=== PATIENT | male | born 2000 | race Hispanic/Latino ===

== ENCOUNTER 2019-04-11 13:20 | Inpatient (IN) | payer BC, OTHER ==
[2019-04-11 13:41] LABS: #Basophils 0.1 thou/uL (0.0-0.2); #Lymphocytes 2.1 thou/uL (1.20-3.40); #Monocytes 1.5 thou/uL (0.11-0.59); #Neutrophils 9.6 thou/uL (1.40-6.50); %Basophils 0.5 % (0.0-1.0); %Eosinophils 0.2 % (0.0-10.0); %Lymphocytes 15.6 % (21.0-51.0); %Neutrophils 72.7 % (42.0-75.0); Hemoglobin 17.9 g/dL (14.0-18.0); Mean Corpuscular HGB CONC 34.8 g/dL (32.0-36.0); Mean Corpuscular Hemoglobin 29.7 pg (27.0-31.0); Mean Corpuscular Volume 85.3 fL (78.0-98.0); Mean Platelet Volume 7.9 fL (7.4-10.4); Platelet Count 389 thou/uL (130-400); RBC Distribution Width 11.8 % (11.5-14.5); Red Blood Cell (RBC) Count 6.04 mill/uL (4.70-6.10); White Blood Cell (WBC) Count 13.2 thou/uL (4.8-10.8)
[2019-04-11 14:05] LABS: ALT (SGPT) 70 U/L (8-55); AST (SGOT) 43 U/L (5-34); Albumin 4.9 g/dL (3.5-5.0); Alkaline Phosphatase 77 U/L (40-110); Anion Gap 16 mmol/L (10-20); BUN (Urea Nitrogen) 21 mg/dL (8.9-20.6); Calc. Creatinine Clearance 0 mL/min (70-130); Calcium 9.6 mg/dL (7.8-10.44); Carbon Dioxide 34 mmol/L (22-29); Chloride 83 mmol/L (98-107); Estimated GFR-MDRD 80; Globulin 3.3 g/dL (2.4-3.5); Glucose 144 mg/dL (70-105); Protein, Total 8.2 g/dL (6.0-8.3); Sodium 130 mmol/L (136-145)
[2019-04-11 14:07] LABS: Potassium 2.6 mmol/L (3.5-5.1)
[2019-04-11] MEDS ORDERED: Ondansetron PF 4 MG/2 ML Vial ONE (14:10)
[2019-04-11] MEDS ORDERED: Potassium Chloride 20 MEQ TAB ONE ×2 (14:36→14:42)
[2019-04-11 15:55] LABS: Bilirubin Negative (Negative); Blood, Urine Negative (Negative); Clarity Clear (Clear); Glucose, Urine (Dipstick) Normal (Negative); Leukocyte Negative Leu/uL (Negative); Nitrite Negative (Negative); Protein, Urine (Dipstick) 10 mg/dL (Neg-Trace); Urobilinogen Normal mg/dL (Less than 2)
[2019-04-11 17:10] VITALS: BMI 17.5
[2019-04-11] MEDS ORDERED: Acetaminophen 650 MG Suppository PR PRN (17:21)
[2019-04-11] MEDS ORDERED: Ondansetron ODT 4 MG TAB PO PRN (17:21)
[2019-04-11] MEDS ORDERED: Guaifenesin DM 100-10/5 ML UDCUP PO PRN (17:21)
[2019-04-11] MEDS ORDERED: Acetaminophen 325 MG TAB PO PRN (17:21)
[2019-04-11] MEDS ORDERED: Senokot S 8.6-50 MG TAB PO PRN (17:21)
[2019-04-11 18:47] LABS: Anion Gap 14 mmol/L (10-20); BUN (Urea Nitrogen) 17 mg/dL (8.9-20.6); Calc. Creatinine Clearance 79 mL/min (70-130); Carbon Dioxide 32 mmol/L (22-29); Chloride 90 mmol/L (98-107); Estimated GFR-MDRD Greater than 90; Glucose 119 mg/dL (70-105); Potassium 3.1 mmol/L (3.5-5.1); Sodium 133 mmol/L (136-145)
[2019-04-11] MEDS: Famotidine/PF 20 mg/2ml Vial SLOW IVP SCH (19:15)
[2019-04-11] MEDS: Ondansetron PF 4 MG/2 ML Vial IVP PRN (19:15)
[2019-04-11] MEDS ORDERED: FLU VACC QS2019-20(6MOS UP)/PF 60 MCG/0.5 ML SYRINGE IM ONE (21:00)
[2019-04-12 05:17] LABS: #Basophils 0.1 thou/uL (0.0-0.2); #Eosinphils 0.2 thou/uL (0.0-0.7); #Lymphocytes 3.6 thou/uL (1.20-3.40); #Monocytes 1.6 thou/uL (0.11-0.59); #Neutrophils 6.9 thou/uL (1.40-6.50); %Basophils 0.8 % (0.0-1.0); %Lymphocytes 29.1 % (21.0-51.0); %Monocytes 12.8 % (0.0-10.0); %Neutrophils 55.3 % (42.0-75.0); Hemoglobin 15.9 g/dL (14.0-18.0); Mean Corpuscular Hemoglobin 30.4 pg (27.0-31.0); Mean Corpuscular Volume 86.9 fL (78.0-98.0); Mean Platelet Volume 7.7 fL (7.4-10.4); Platelet Count 313 thou/uL (130-400); RBC Distribution Width 11.6 % (11.5-14.5); Red Blood Cell (RBC) Count 5.25 mill/uL (4.70-6.10); White Blood Cell (WBC) Count 12.5 thou/uL (4.8-10.8)
[2019-04-12 05:44] LABS: ALT (SGPT) 70 U/L (8-55); AST (SGOT) 59 U/L (5-34); Albumin 4.2 g/dL (3.5-5.0); Alkaline Phosphatase 64 U/L (40-110); Anion Gap 12 mmol/L (10-20); BUN (Urea Nitrogen) 14 mg/dL (8.9-20.6); Bilirubin, Total 1.7 mg/dL (0.2-1.2); Calc. Creatinine Clearance 83 mL/min (70-130); Calcium 8.7 mg/dL (7.8-10.44); Carbon Dioxide 31 mmol/L (22-29); Chloride 93 mmol/L (98-107); Estimated GFR-MDRD Greater than 90; Globulin 2.6 g/dL (2.4-3.5); Glucose 105 mg/dL (70-105); Protein, Total 6.8 g/dL (6.0-8.3); Sodium 133 mmol/L (136-145)
[2019-04-12 05:48] LABS: Potassium 2.8 mmol/L (3.5-5.1)
--- NOTE | 2019-04-12 05:58 | HP ---
PRIMARY CARE PHYSICIAN: Dr. Dejan Garcia at [facility]. CHIEF COMPLAINT: Intractable nausea and vomiting. HISTORY OF PRESENT ILLNESS: This is a 19-year-old male with a history of for about the past two years, intermittent episodes of nausea and vomiting, usually lasts 3 to 4 days, happens about every 6 months. He has occasionally had to go into the urgent care at [facility] for this, where he has gotten potassium. He also had ultrasound of his gallbladder maybe a year ago or so, which was normal at that time. He has never seen a furniture crater for this and has never been given a diagnosis that was causing it, though his mom was suspicious that it might be related to stress because previous times it had been during very stressful jobs he had. The patient reports that for the last 5 days, he has had return of his nausea. Nausea is present all the time. He does tend to vomit about 3 to 4 times per day, usually if he tries to drink too much fluids or eat anything. He vomits mostly yellow stuff. No blood in it. Has some abdominal soreness as well, but no specific abdominal pain. The patient denies any fever or chills. No diarrhea. No other infectious symptoms. He states he is not under a lot of stress right now, nothing that he can think of that might have brought it on. PAST MEDICAL HISTORY: None. PAST SURGICAL HISTORY: None. SOCIAL HISTORY: No tobacco, alcohol, or illicit drug use. Also denies any sexual intercourse. ALLERGIES: NO KNOWN DRUG ALLERGIES. CURRENT MEDICATIONS: None. REVIEW OF SYSTEMS: CONSTITUTIONAL: No fevers. No chills. EYES: No double vision or blurred vision. ENT: No congestion or drainage. His throat does burn a little bit right after vomiting. CARDIOVASCULAR: No chest pain. No palpitations or racing heart. PULMONARY: No coughing, wheezing, or shortness of breath. GASTROINTESTINAL: See HPI. GENITOURINARY: No dysuria or hematuria. He has had some decreased urine output since decreasing his p.o. intake. MUSCULOSKELETAL: He does have some muscle cramps sometimes right when he is vomiting, but otherwise no musculoskeletal complaints. SKIN: No rashes or other lesions noted. NEUROLOGIC: No numbness, tingling, or focal weakness. PHYSICAL EXAMINATION: VITAL SIGNS: Blood pressure 155/92, pulse 94, respirations 14, temperature 98.4, O2 saturation 100% on room air. GENERAL: This is a well-developed, well-nourished, male, in no acute distress, who appears comfortable in the bed. HEENT: Pupils are equal, round, and reactive to light. Oropharynx clear without lesions, erythema, or exudate. He has moist mucous membranes. NECK: Supple. No lymphadenopathy. No thyroid nodules or enlargement. No JVD. HEART: Regular rate and rhythm. No murmurs, rubs, or gallops. LUNGS: Clear to auscultation bilaterally. No wheezes, crackles, or rhonchi. ABDOMEN: Soft, nontender to palpation. Normoactive bowel sounds. No hepatosplenomegaly or other masses. EXTREMITIES: No clubbing, cyanosis, or edema. SKIN: No rashes or other lesions noted. NEUROLOGIC: He moves all extremities equally and has no facial droop. PSYCHIATRIC: Alert and oriented x3. LABORATORY DATA: CBC with a white blood cell count of 13,000, with 72% neutrophils, 11% monocytes. Complete metabolic panel is notable for a sodium of 130, potassium of 2.6, chloride of 83, carbon dioxide of 34, BUN of 21, glucose of 144, total bilirubin of 2.0, AST of 43, ALT of 70. Lipase is normal. The rest of the CMP was normal. Urinalysis showed 20 ketones, no evidence for infection. ASSESSMENT: 1. Intractable nausea and vomiting with recurrent episodes. The patient was given Zofran down in the emergency room. He has been trying fluid since then, felt nauseated when I went to examine him. Right after I left the room, he did go into the bathroom and vomited up all the fluids he had been drinking. Vomit was yellowish, not bright green and no blood. [place] a little better after vomiting. Given the patient's intractable nature of his vomiting, I am going to go ahead and see if Gastroenterology can see him in the morning. We will observe him overnight and we will give him some IV fluids and recheck blood work in the morning. 2. Hypokalemia. He was given potassium chloride cocktail down in the emergency room. I will recheck that now and see if he needs more. 3. Elevated bilirubin and mild transaminase elevations. This is possibly due to his recurrent vomiting; however, biliary etiology of his symptoms is possible. It has been a while since his last ultrasound, so we will go ahead and get an ultrasound of the gallbladder and liver and pancreas and then tomorrow can see if Gastroenterology recommends any further workup. 4. Gastrointestinal prophylaxis. Put the patient on Pepcid twice a day IV. 5. Deep venous thrombosis prophylaxis. We will encourage ambulation. CODE STATUS: The patient is a full code. Should he be incapacitated, his mother is at the bedside, who will be his medical decision maker, her name is Lady Doty. Job ID: [id number]
[2019-04-12] MEDS ORDERED: Potassium Chloride 40 MEQ in Sodium Chloride 0.45% 1,000 ML IV SCH ×2 (06:00→12:16)
--- NOTE | 2019-04-12 08:04 | ULT ---
RIGHT UPPER QUADRANT ABDOMINAL ULTRASOUND: Date: 04/12/2019 HISTORY: Right upper quadrant abdominal and epigastric pain for 3-4 days, with nausea and vomiting. TECHNIQUE: Multiplanar Reynaga scale and color Doppler images were obtained in a right upper quadrant abdominal ult rasound. FINDINGS: The liver is normal in echogenicity without focal lesions or intrahepatic ductal dilatation. The gall bladder is filled with sludge. No shadowing stones are seen in the gallbladder. There is no gallbladd er wall thickening or pericholecystic fluid. The common bile duct is normal, measuring 3.0 mm. The visualized portions of the pancreas are unremarkable. The right kidney is normal in echogenicity without hydronephrosis or calculus and measures 8.9 cm in length. IMPRESSION: Gallbladder sludge; otherwise unremarkable exam. POS: [facility]
[2019-04-12] MEDS: Ondansetron PF 4 MG/2 ML Vial IVP PRN ×2 (08:55→21:13)
[2019-04-12] MEDS: Famotidine/PF 20 mg/2ml Vial SLOW IVP SCH (08:55)
[2019-04-12] MEDS ORDERED: Pantoprazole 40 MG VIAL IVP SCH (09:45)
[2019-04-12 10:08] LABS: Magnesium 2.5 mg/dL (1.6-2.6); Phosphorus 3.4 mg/dL (2.3-4.7)
[2019-04-12] MEDS ORDERED: Potassium Chloride 40 MEQ in Premix Bag 1 BAG IVPB SCH (10:15)
[2019-04-12] MEDS: Potassium Chloride 20 MEQ in Premix Bag 1 BAG IVPB SCH ×2 (11:28→14:00)
[2019-04-12] MEDS ORDERED: Promethazine HCl 25 MG in Sodium Chloride 0.9% 50 ML IVPB PRN (11:51)
[2019-04-12] MEDS ORDERED: Potassium Phosphate 9 MMOL in Sodium Chloride 0.9% 100 ML IVPB SCH (14:00)
--- NOTE | 2019-04-12 14:07 | PDOC.HOSPP ---
- Subjective Encounter Date: 04/12/19 Encounter Time: 13:30 Subjective: Patient seen and examined for N/V. No significant improvement. No BM x 5 days. No new complaints. No overnight events - Objective Vital Signs & Weight: Vital Signs (12 hours) Temp Pulse Resp BP BP Pulse Ox 04/12/19 11:23 98.4 F 86 16 144/96 H 99 04/12/19 07:55 99.1 F 88 16 140/93 H 99 04/12/19 04:50 98.5 F 68 16 127/70 98 Weight Weight 108 lb 9.6 oz I&O: 04/11/19 04/12/19 04/13/19 06:59 06:59 06:59 Intake Total 590 Balance 590 Result Diagrams: 04/12/19 04:56 04/12/19 04:56 Radiology Reviewed by me: Yes ([facility] - [facility] [place]) Hospitalist ROS - Review of Systems Respiratory: denies: cough, dry, shortness of breath, hemoptysis, SOB with excertion, pleuritic pain, sputum, wheezing, other Cardiovascular: denies: chest pain, palpitations, orthopnea, paroxysmal noc. dyspnea, edema, light headedness, other Gastrointestinal: denies: nausea, vomiting, abdominal pain, diarrhea, constipation, melena, hematochezia, other - Medication Medications: Active Medications Generic Name Dose Route Start Last Admin Trade Name Freq PRN Reason Stop Dose Admin Ondansetron HCl 4 mg 04/11/19 17:21 04/12/19 08:55 Zofran IVP 4 mg Q6H PRN Administration Nausea/Vomiting Sodium Chloride 10 ml 04/12/19 09:00 04/12/19 08:59 Flush - Normal Saline IVF 10 ml Q12HR MATT Administration - Exam General Appearance: NAD Heart: RRR, no gallops, no rubs Respiratory: no wheezes, no ronchi Gastrointestinal: non-distended, normal bowel sounds, tender to palpation (in epigastric region) Extremities: no cyanosis, no clubbing Hosp A/P - Plan DVT proph w/SCDs Intractable N/V Abn LFTs Hypokalemia/Hyponatremia Dehydration PLAN: Cont IVF with Potassium (at slower rate due to irritation from Potassium) Replace Potassium Abd series Await GI input AM labs Ambulate Antiemetics
[2019-04-12] MEDS ORDERED: NS 0.9% w/ 20 MEQ KCL 1,000 ML/1,000 ML BAG IV SCH ×2 (14:30→20:59)
--- NOTE | 2019-04-12 15:17 | RAD ---
KUB AND UPRIGHT AND PA CHEST: Date: 04/12/2019 HISTORY: Abdominal pain. FINDINGS: The bowel gas pattern is nonobstructed. Liver silhouette is somewhat prominent. No free air. No renal calculi. PA CHEST: Heart size and mediastinum within normal limits. Lungs are clear of any infiltrative process. IMPRESSION: Essentially unremarkable abdomen series. Slightly prominent liver outline, may just be related to marcella ngated right lobe. An ultrasound done earlier did not show an enlarged liver. POS: [facility]
[2019-04-12] MEDS: Pantoprazole 40 MG VIAL IVP SCH (20:30)
[2019-04-12] MEDS ORDERED: ALPRAZolam 0.25 MG TAB PO PRN (20:59)
[2019-04-13 05:23] LABS: ALT (SGPT) 69 U/L (8-55); AST (SGOT) 49 U/L (5-34); Albumin 3.9 g/dL (3.5-5.0); Alkaline Phosphatase 60 U/L (40-110); Bilirubin, Direct 0.7 mg/dL (0.1-0.3); Bilirubin, Total 1.4 mg/dL (0.2-1.2); Lipase 31 U/L (8-78); Protein, Total 6.4 g/dL (6.0-8.3)
[2019-04-13 05:24] LABS: Anion Gap 10 mmol/L (10-20); BUN (Urea Nitrogen) 14 mg/dL (8.9-20.6); Calc. Creatinine Clearance 80 mL/min (70-130); Calcium 8.7 mg/dL (7.8-10.44); Carbon Dioxide 32 mmol/L (22-29); Chloride 98 mmol/L (98-107); Estimated GFR-MDRD Greater than 90; Glucose 87 mg/dL (70-105); Magnesium 2.4 mg/dL (1.6-2.6); Potassium 3.5 mmol/L (3.5-5.1); Sodium 136 mmol/L (136-145)
[2019-04-13] MEDS: Pantoprazole 40 MG VIAL IVP SCH ×2 (08:26→21:11)
[2019-04-13] MEDS: NS 0.9% w/ 20 MEQ KCL 1,000 ML/1,000 ML BAG IV SCH ×2 (09:42→21:12)
[2019-04-13 09:57] LABS: HBSAg Index 0.25 S/CO (0-0.99); Hep A IgM AB Non-Reactive (NonReactive); Hep A IgM S/CO 0.15 S/CO (0-0.79); Hep B Surf Ag Non-Reactive S/CO (NonReactive); Hep C IgG Ab Non-Reactive (NonReactive); Hep C Index 0.11 S/CO (0-0.79); Hepatitis B Core IgM Abs Non-Reactive (NonReactive)
[2019-04-13] MEDS ORDERED: Rocuronium Bromide 10 MG/ML (10ML VIAL) ONE (10:39)
[2019-04-13] MEDS ORDERED: Glycopyrrolate 0.2 MG/ML 5 ML SYRINGE ONE (10:39)
[2019-04-13] MEDS ORDERED: Lidocaine 1% PF 5 ML VIAL ONE (10:39)
[2019-04-13] MEDS ORDERED: PROPOFOL 200 MG/20 ML VIAL ONE (10:39)
[2019-04-13] MEDS ORDERED: Ondansetron PF 4 MG/2 ML Vial ONE (10:39)
--- NOTE | 2019-04-13 11:00 | CON ---
DATE OF CONSULTATION: REASON FOR CONSULTATION: Intractable nausea and vomiting over the last 5 days. HISTORY OF PRESENT ILLNESS: Mr. Vishal Doty is a very fragile looking 19-year-old with nausea and vomiting over the last 5 days. The symptoms all began suddenly about 5 days ago. He had no abdominal pain. No fever or chills. No diarrhea. He started having nausea and vomiting suddenly and has been doing it off and on over the last 5 days. He was unable to keep anything down. Today, he had vomited 3 times. At the present time, he appears comfortable and he has no nausea. However, he is not eating anything or drinking anything over the last 5 days as per the patient's father. The patient has had intermittent episodes of nausea and vomiting at least once every 6 months over the last several years. He has been seen by Dr. Dejan Garcia, his primary care doctor at [facility]. The patient has had nausea and vomiting usually when he is stressed out. However, at this time, he has no stress. He does not smoke. He does not drink alcohol. No history of any smoking pot. Since admission, the patient was given IV fluids and IV Zofran. He has had abdominal sonogram, which shows biliary sludge. He also has abnormal LFTs with mild bilirubin elevation at 2 mg%, and also the transaminase is slightly high. However, he did have right upper quadrant pain and epigastric abdominal pain. He has simply had nausea and vomiting. He has no relevant history. ALLERGIES: NONE. SOCIAL HISTORY: The patient does not smoke or drink alcohol. No history of drug use. MEDICAL ILLNESSES: None. PAST SURGICAL HISTORY: None. FAMILY HISTORY: Father: Coronary artery disease; diabetes mellitus; chronic kidney disease, on dialysis. No family history of gallstones. MEDICATIONS: At home, none. SYSTEM REVIEW: 10-point system review, CONSTITUTIONAL: No history of any weight loss. No history any fever or chills. Has good exercise tolerance. HEAD: No chronic headache. No dizziness. EYES: No impaired vision. No diplopia. EARS: No hearing loss. No ear pain. NOSE: No nosebleed. THROAT: No sore throat. NECK: No stiffness or pain. LUNGS: No chronic coughing, hemoptysis, or dyspnea. CARDIOVASCULAR SYSTEM: No chest pain. No dyspnea, palpitation, or orthopnea. GI: No abdominal pain, but nausea and vomiting. No diarrhea. No hematochezia. GENITOURINARY: No dysuria or hematuria. MUSCULOSKELETAL: Not relevant. NEUROLOGIC: Not relevant. ENDOCRINE: Not relevant. HEMATOLOGICAL: Not relevant. PHYSICAL EXAMINATION: GENERAL: Appears thin built, in no acute distress, but he appears ill. VITAL SIGNS: Afebrile. Pulse is 90 and blood pressure 157/109. HEENT: Conjunctivae are clear. NECK: Supple. No adenitis or thyromegaly noted. CARDIOVASCULAR SYSTEM: First and second heart sounds heard. LUNGS: Clear to auscultation. ABDOMEN: Soft. Abdomen is nondistended. Abdomen is actually nontender. He does feel sensitive to palpation. There is no rebound or guarding. Overall, the exam is very benign. EXTREMITIES: Reveal no edema. LABORATORY DATA: Shows WBC 12,500, normal hemoglobin and hematocrit, MCV 86.9, platelet count is normal at 313,000, polymorphs of 55, lymphocytes of 29, monocytes 12. Chemistry panel: He is hypokalemic with potassium of 2.6, coming up to 2.8 today; sodium 133; chloride 93; bicarb 31; BUN is 14; creatinine 0.98; glucose 105; calcium is 8.7; bilirubin 2 mg% yesterday, today 1.7, AST 43, ALT is 70. Lipase is normal at 21. Abdominal sonogram shows biliary sludge. Abdominal x-ray shows no pathology. CLINICAL IMPRESSION: 1. Intractable nausea and vomiting over the last 5 days. He had no abdominal pain. He has similar episodes in the past. He was told to have stress-induced nausea and vomiting. However, this time, he was not under any stress. 2. Biliary sludge with abnormal LFTs. One has to wonder if there is a possibility if he is passing a common bile duct stone. The liver function is very minimally elevated. 3. Possible viral syndrome. RECOMMENDATIONS: 1. IV fluids. 2. Correction of hypokalemia. 3. Repeat LFTs tomorrow. If the LFTs remain high or keep going up, please continue with surgical input because of biliary sludge and abnormal LFTs. This was discussed with the patient and his father who is in the room. I ordered LFTs tomorrow and decide what the next step is. Job ID: [id number]
--- NOTE | 2019-04-13 15:41 | NM ---
HEPATOBILIARY SCAN: 04/13/19 HISTORY: Right upper quadrant pain, epigastric pain. Sludge in the gallbladder on ultrasound of 04/11/29. RADIOPHARMACEUTICAL: 4.5 millicuries technetium 99m Mebrofenin injected intravenously. FINDINGS: There is good tracer extraction by the liver with prompt excretion of the biliary tract and small bow el loops and normal filling of the gallbladder. There is duodenal gastric reflux. The calculated gallbladder ejection fraction following a 30 minute IV infusion of 0.98 microgram CCK- 8 measures 6%. Please note that the patient was pretreated with the same additional dose of CCK-8 half an hour prior to the administration of radiopharmaceutical. IMPRESSION: Gallbladder dyskinesia/chronic acalculous cholecystitis. POS: [facility]
[2019-04-13] MEDS ORDERED: Bupivacaine 0.25% HCL 30 ML VIAL ONE (16:19)
[2019-04-13] MEDS ORDERED: Lidocaine 1% w/Epinephrine 1:100K 20 ML VIAL ONE (16:19)
[2019-04-13] MEDS ORDERED: Fentanyl 100 MCG/2 ML VIAL ONE ×2 (16:36→18:46)
[2019-04-13] MEDS ORDERED: Midazolam HCl 2 mg/2 ml Vial ONE (17:05)
[2019-04-13] MEDS ORDERED: Mag-Al 1200 mg/1200 mg/30 ML UDCUP PO PRN (18:57)
[2019-04-13] MEDS ORDERED: hydrALAZINE 20 MG/ML VIAL SLOW IVP PRN (18:57)
[2019-04-13] MEDS ORDERED: Dextrose 5% in Water 1,000 ML IV PRN (18:57)
[2019-04-13] MEDS ORDERED: traMADol HCl 50 MG TAB PO PRN ×2 (18:57)
[2019-04-13] MEDS ORDERED: Calcium Carbonate 500 MG ChewTAB PO PRN (18:57)
[2019-04-13] MEDS ORDERED: Dextrose 50% Abboject 50 ML SYRINGE SLOW IVP PRN (18:57)
[2019-04-13] MEDS ORDERED: Ondansetron HCl/PF 4 MG/2 ML Vial IVP PRN (19:04)
[2019-04-13] MEDS ORDERED: Promethazine HCl 25 MG/ML VIAL SLOW IVP PRN (19:04)
[2019-04-13] MEDS ORDERED: Promethazine HCl 25 MG/ML VIAL IM PRN (19:04)
[2019-04-13] MEDS ORDERED: Acetaminophen 500 MG TAB PO SCH (19:15)
--- NOTE | 2019-04-13 21:58 | CON ---
DATE OF CONSULTATION: 04/13/2019 REQUESTING PHYSICIAN: Dr. Pizano with Gastroenterology. HISTORY OF PRESENT ILLNESS: Mr. Doty is a 19-year-old man, who presented to the emergency department 2 days ago with insidious onset recurrent nausea and bilious emesis. The patient reported a 5-day history of emesis, which is usually spontaneous and starting midway through lunch. His lunch usually consists of fast foods. He had he has experienced multiple bouts of nausea and emesis now spanning over 2 years and has become more frequent over the last 6 months. The patient denies any abdominal pain, fevers or chills. He denies any diarrhea. He reports frequent flatulence. PAST MEDICAL HISTORY: None except for this chronic nausea and vomiting. PAST SURGICAL HISTORY: Denies any previous surgeries. SOCIAL HISTORY: He is single, lives at home with his parents. 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 He smokes marijuana approximately twice a month. He denies any cigarette smoking, ethanol, or other illicit drug abuse. FAMILY HISTORY: Notable for essential hypertension, diabetes mellitus, heart disease, and polyposis coli in his father. There is no family history of cancer or inflammatory bowel disease. PREHOSPITALIZATION MEDICATIONS: None. ALLERGIES: THE PATIENT DENIES ANY KNOWN DRUG ALLERGIES. REVIEW OF SYSTEMS: Ten-point review of systems essentially unremarkable except as stated in past medical history and chief complaint. PHYSICAL EXAMINATION: GENERAL: This reveals a 19-year-old thin appearing man who is otherwise coherent and interactive and appears stated age. The patient is alert and oriented x3, appears to be in no acute distress at the time of my evaluation. VITAL SIGNS: Includes blood pressure 119/65, pulse is 57, respiratory rate is 16, temperature is 97.4 degrees Fahrenheit, oxygen saturation is 100% on room air. HEENT: Reveals normocephalic and atraumatic. Pupils are equal, round, reactive to light and accommodation. He has no scleral icterus present. HEART: Reveals regular rate and rhythm. No murmurs or gallops auscultated. LUNGS: Clear to auscultation bilaterally. Breathing, regular and nonlabored. ABDOMEN: Soft and scaphoid with no tenderness to palpation. Liver and spleen are nonpalpable below costal margins. EXTREMITIES: Reveal 2+ radial and pedal pulses bilaterally. Ankle edema is present. NEUROLOGIC: Reveals no focal deficits present. LABORATORY FINDINGS: Includes a CBC obtained yesterday with 12,500 white blood cells, down from 13,200 on 04/11/2019. Hemoglobin and hematocrit stable at 15.9 and 45.6 respectively. Platelet count 313,000. Metabolic profile; sodium 136, potassium 3.5, chloride is 98, bicarb is 32, BUN is 14, creatinine is 1.02, glucose is 87, magnesium is 2.4, total bilirubin is 1.4, AST and ALT are 49 and 69 respectively, stable when compared to 59 and 70 on 04/12/2019. Serum lipase is normal at 31. I have personally reviewed the abdominal ultrasound, which is notable for gallbladder with biliary sludge. There is no gallbladder wall thickening, pericholecystic fluid or gallstones noted. Common bile duct is also normal in diameter for this patient's age at 3 mm. I have also reviewed the HIDA scan, which was obtained today, which reveals no common bile duct or cystic ductal obstruction; however does show an ejection fraction of 6%. IMPRESSION: Chronic nausea and vomiting, highly likely secondary to biliary dyskinesis and associated chronic acalculous cholecystitis. RECOMMENDATIONS: 1. Laparoscopic cholecystectomy. 2. This findings and recommendations have been discussed with the patient and his parents at bedside in the presence of his nurse. 3. I have also informed the patient of the risks and benefits of the proposed surgery to include, but not limited to bleeding, infection, injury to bile duct or surrounding structures. 4. Additionally, I have made the patient aware of possibility of a postoperative loose bowel movements, which, however, is unlikely in this setting given the patient has history of chronic biliary dyskinesia. 5. The patient indicates understanding of all information I have given him today and has granted consent for this surgical intervention. I did answer all his questions. Thank you again, Dr. Pizano for allowing me the opportunity to participate in the care of this patient. Job ID: [id number]
--- NOTE | 2019-04-13 23:29 | PDOC.HOSPP ---
- Subjective Encounter Date: 04/13/19 Encounter Time: 19:00 Subjective: Patient seen and examined for N/V with abn LFTs. Nausea somewhat better. No vomiting. Epigastric pain same. No new complaints. No overnight events - Objective Vital Signs & Weight: Vital Signs (12 hours) Temp Pulse Resp BP Pulse Ox 04/13/19 15:34 97.4 F L 57 L 16 119/65 100 04/13/19 11:30 98.6 F 66 14 112/59 L 99 Weight Admit Weight 108 lb 9.6 oz Weight 108 lb 9.6 oz I&O: 04/12/19 04/13/19 04/14/19 06:59 06:59 06:59 Intake Total 590 1600 Balance 590 1600 Result Diagrams: 04/14/19 04:34 04/14/19 04:34 Radiology Reviewed by me: No ([facility] - EF 6%) Hospitalist ROS - Review of Systems Respiratory: denies: cough, dry, shortness of breath, hemoptysis, SOB with excertion, pleuritic pain, sputum, wheezing, other Cardiovascular: denies: chest pain, palpitations, orthopnea, paroxysmal noc. dyspnea, edema, light headedness, other - Medication Medications: Active Medications Generic Name Dose Route Start Last Admin Trade Name Freq PRN Reason Stop Dose Admin Alprazolam 0.25 mg 04/12/19 20:59 04/12/19 21:13 Xanax PO 0.25 mg BIDPRN PRN Administration Anxiety Promethazine HCl 25 mg/ Sodium 51 mls @ 102 mls/hr 04/12/19 11:51 04/12/19 15 :02 Chloride IVPB 51 mls Q6H PRN Administration Nausea Potassium Chloride/Sodium Chloride 1,000 ml in 1,000 mls @ 50 mls/hr 04/13/19 08:52 04/13/19 21:12 Ns 0.9% W/ 20 Meq Kcl IV 1,000 mls .Q20H MATT Administration Ondansetron HCl 4 mg 04/11/19 17:21 04/12/19 21:13 Zofran IVP 4 mg Q6H PRN Administration Nausea/Vomiting Pantoprazole Sodium 40 mg 04/12/19 21:00 04/13/19 21:11 Protonix IVP 40 mg Q12HR MATT Administration Potassium Chloride 20 meq 04/12/19 15:00 04/13/19 20:21 Klor-Con PO Not Given TID MATT Sodium Chloride 10 ml 04/12/19 09:00 04/13/19 08:51 Flush - Normal Saline IVF Not Given Q12HR MATT Tramadol HCl 100 mg 04/13/19 18:57 04/13/19 20:03 Ultram PO 100 mg Q6H PRN Administration Severe Pain (7-10) - Exam General Appearance: NAD Heart: RRR, no gallops Respiratory: no wheezes, no ronchi Gastrointestinal: soft, no guarding, no rigidity, tender to palpation ( epigastric area) Extremities: no cyanosis Hosp A/P - Plan DVT proph w/SCDs Intractable N/V/Abd pain - suspected due to chronic cholecystitis Abn LFTs Hypokalemia/Hyponatremia Dehydration PLAN: Gen surg input appreciated Cont IVF Cholecystectomy in AM Cont other meds as above
[2019-04-14] MEDS: Ketorolac Tromethamine 30 MG/ML VIAL IVP SCH ×2 (00:13→05:58)
[2019-04-14] MEDS: Piperacillin/Tazobactam 3.375 GM in Sodium Chloride 0.9% 100 ML IVPB SCH ×3 (00:14→13:14)
[2019-04-14] MEDS: Acetaminophen 500 MG TAB PO SCH ×5 (00:14→23:57)
--- NOTE | 2019-04-14 00:54 | OP ---
DATE OF PROCEDURE: 04/13/2019 PREOPERATIVE DIAGNOSIS: Biliary dyskinesia with chronic acalculous cholecystitis. POSTOPERATIVE DIAGNOSIS: Biliary dyskinesia with chronic acalculous cholecystitis. PROCEDURE PERFORMED: Laparoscopic cholecystectomy. ANESTHESIA: General endotracheal. ESTIMATED BLOOD LOSS: 20 mL. FLUIDS GIVEN: 1000 mL crystalloids. COUNTS: Sponge and instrument counts were verified as correct x2. COMPLICATIONS: None apparent at the time of operation. INDICATIONS FOR OPERATION: A 19-year-old man presented with recurrent preprandial nausea and emesis with anorexia. Clinical and radiographic examination were consistent with acute biliary dyskinesia with chronic acalculous cholecystitis for which the patient was brought to the operating room today for cholecystectomy. Findings are consistent with distended gallbladder in usual anatomic location partially encased by omental adhesions. DESCRIPTION OF PROCEDURE: Informed consent was obtained from the patient, brought to the operating room and placed in supine position. Following general anesthesia, abdomen was sterilely prepped and draped in usual fashion. The skin below the umbilicus was infiltrated with 0.25% Marcaine with epinephrine. A small curvilinear infraumbilical incision was made using 11 scalpel. Umbilical stalk grasped with Radha and elevated. Veress needle was inserted through the incision and placed in the peritoneal cavity through which the abdomen was insufflated with 3 L of CO2 gas. Intraabdominal pressure was noted at 2 mmHg. Following abdominal insufflation, Veress needle was removed and a 5 mm trocar introduced using a Visiport under laparoscopy. Laparoscopy confirmed proper placement of the port. No injuries to underlying structures. Additional laparoscopy reveals distended gallbladder in the usual anatomic location, partially encased by omental adhesions. Under the laparoscopy, a 12 mm epigastric and two 5 mm right lateral subcostal ports were placed after the overlying skin was infiltrated with 0.25% Marcaine with epinephrine. Appropriate incision was made. The patient was placed in a reverse Trendelenburg position, rotated to his left. I introduced a Prestige grasper through the right lateral subcostal port grasping the fundus of the gallbladder, which was elevated cephalad. Omental adhesions were dissected off the remainder of the gallbladder using a [place] dissector with cautery. A second Prestige grasper introduced through the right medial subcostal port grasping the Estella's pouch, which was retracted laterally. The cystic duct was carefully dissected free from the surrounding structures at the triangle of Calot. The duct was divided between clips, applying 2 clips proximally and 1 clip at the junction of the cystic duct and gallbladder. Cystic artery dissected free from surrounding structures and divided between clips in a similar fashion. The gallbladder itself was removed from the liver bed using cautery and passed off the operative field using an EndoCatch. Operative site was irrigated with saline noting good hemostasis in place. FINDING: No other pathology, laparoscopy was terminated. Fascia of the epigastric port was closed using 0 Vicryl suture and Endoclosure device on the laparoscopy. The abdomen was desufflated. All ports and instruments removed and accounted for. Skin incision was closed using 4-0 Monocryl suture in subcuticular fashion. Dermabond was applied over incisional closure. The patient tolerated the operation without any apparent complication and was returned to recovery room in satisfactory condition. Job ID: [id number]
[2019-04-14 04:56] LABS: #Basophils 0.1 thou/uL (0.0-0.2); #Eosinphils 0.1 thou/uL (0.0-0.7); #Lymphocytes 1.7 thou/uL (1.20-3.40); #Monocytes 1.2 thou/uL (0.11-0.59); #Neutrophils 11.9 thou/uL (1.40-6.50); %Basophils 0.5 % (0.0-1.0); %Eosinophils 0.9 % (0.0-10.0); %Lymphocytes 11.3 % (21.0-51.0); %Monocytes 7.8 % (0.0-10.0); %Neutrophils 79.6 % (42.0-75.0); Hemoglobin 15.2 g/dL (14.0-18.0); Mean Corpuscular Volume 88.3 fL (78.0-98.0); Mean Platelet Volume 7.7 fL (7.4-10.4); Platelet Count 278 thou/uL (130-400); RBC Distribution Width 11.6 % (11.5-14.5); Red Blood Cell (RBC) Count 5.06 mill/uL (4.70-6.10)
[2019-04-14 05:20] LABS: ALT (SGPT) 246 U/L (8-55); AST (SGOT) 290 U/L (5-34); Albumin 3.8 g/dL (3.5-5.0); Alkaline Phosphatase 91 U/L (40-110); Anion Gap 13 mmol/L (10-20); BUN (Urea Nitrogen) 9 mg/dL (8.9-20.6); Bilirubin, Total 2.7 mg/dL (0.2-1.2); Calc. Creatinine Clearance 102 mL/min (70-130); Calcium 8.4 mg/dL (7.8-10.44); Carbon Dioxide 26 mmol/L (22-29); Chloride 96 mmol/L (98-107); Estimated GFR-MDRD Greater than 90; Globulin 2.5 g/dL (2.4-3.5); Glucose 102 mg/dL (70-105); Potassium 3.6 mmol/L (3.5-5.1); Protein, Total 6.3 g/dL (6.0-8.3); Sodium 131 mmol/L (136-145)
[2019-04-14] MEDS: Pantoprazole 40 MG VIAL IVP SCH (08:59)
--- NOTE | 2019-04-14 11:28 | PRG ---
DATE OF SERVICE: 04/14/2019 SUBJECTIVE: Mr. Doty is a 19-year-old man, who is postop day #1, status post laparoscopic cholecystectomy for chronic biliary dyskinesia and acalculous cholecystitis. This morning, he reports adequate pain control. He denies any nausea at the moment. He has avoided eating for fear of exacerbating his preoperative nausea. He is not passing any flatus. He has not ambulated since surgery. OBJECTIVE: VITAL SIGNS: This morning include blood pressure 112/58, pulse is 73, respiratory rate is 16, temperature 97.8 degrees Fahrenheit, and oxygen saturation 100% on room air. HEENT: Pupils are equally round and reactive to light and accommodation. He has no scleral icterus present. HEART: Reveals regular rate and rhythm. No murmurs or gallops auscultated. LUNGS: Clear to auscultation bilaterally. Breathing, regular and nonlabored. ABDOMEN: Soft and nondistended. Incisions are intact, clean, and dry. He has incisional tenderness to palpation. LABORATORY FINDINGS: Include a CBC with 15,000 white blood cells, hemoglobin and hematocrit are 15.2 and 44.7 respectively. Platelet count is 278,000. Metabolic profile; sodium 131, potassium 3.6, chloride is 96, bicarb is 26, BUN 9, creatinine is 0.80, glucose is 102, total bilirubin is 2.7, AST and ALT are 290 and 246 respectively. IMPRESSION: 1. Postoperative day #1, status post laparoscopic cholecystectomy. 2. Elevated LFTs. PLAN: 1. Increase activity as the patient has been encouraged to ambulate liberally. 2. We will initiate clear liquid diet and advance as tolerated. 3. We will repeat LFTs in the morning. Anticipate discharge within next 24 hours if LFTs are normalizing, pain control is adequate, and the patient is tolerating oral intake. Above findings and plan discussed with the patient and his parents at bedside. They all indicated understanding of information given. I have answered their questions. Job ID: [id number]
--- NOTE | 2019-04-14 11:40 | PRG ---
DATE OF SERVICE: 04/14/2019 SUBJECTIVE: This is a 19-year-old Latin-S[place]i male with intractable nausea and vomiting without any abdominal pain. He had an abdominal sonogram which shows biliary sludge and also liver function tests were elevated. He underwent a HIDA scan which shows very low ejection fraction. He underwent laparoscopic cholecystectomy by Dr. Martinez last night. The patient is doing well at this time. He is tolerating clear liquid diet. He has abdominal pain from the operative area. There is no nausea or vomiting today. His liver function test which is slightly high has gone up. The bilirubin was 1.4 yesterday and has gone up to 2.7, AST 49 gone up to 290, ALT 69, gone up to 246. His potassium is back to normal. PHYSICAL EXAMINATION: GENERAL: He is thin built, appears comfortable. VITAL SIGNS: Afebrile. Pulse is 73, blood pressure is 112/58. CARDIOVASCULAR: Within normal limits. LUNGS: Within normal limits. ABDOMEN: Soft. Abdomen is mildly sore over the op site. No rebound or guarding. CLINICAL IMPRESSION: 1. Status post laparoscopy cholecystectomy for biliary dyskinesia, common duct biliary sludge. 2. Abnormal LFTs, going up. There is a possibility of common bile duct stone. Unfortunately, no intraoperative cholangiogram done yesterday. PLAN: Repeat LFTs tomorrow. If LFTs does not come down, may have to consider an ERCP. Job ID: [id number]
[2019-04-14] MEDS ORDERED: Ibuprofen 600 MG TAB PO SCH (12:00)
[2019-04-14] MEDS: Ibuprofen 200 MG TAB PO SCH ×3 (13:14→23:57)
--- NOTE | 2019-04-14 14:09 | PDOC.HOSPP ---
- Subjective Encounter Date: 04/14/19 Encounter Time: 13:00 Subjective: Patient seen and examined for N/V. s/p Lap nils. Tolerating liqd diet. No new complaints. No overnight events - Objective Vital Signs & Weight: Vital Signs (12 hours) Temp Pulse Resp BP BP Pulse Ox 04/14/19 11:49 98.2 F 69 16 130/73 98 04/14/19 08:20 97.8 F 73 16 112/58 L 100 04/14/19 06:00 97.5 F L 58 L 18 124/76 100 Weight Admit Weight 108 lb 9.6 oz Weight 108 lb 9.6 oz I&O: 04/13/19 04/14/19 04/15/19 06:59 06:59 06:59 Intake Total 1600 200 Output Total 250 Balance 1600 -50 Result Diagrams: 04/14/19 04:34 04/14/19 04:34 Hospitalist ROS - Review of Systems Respiratory: denies: cough, dry, shortness of breath, hemoptysis, SOB with excertion, pleuritic pain, sputum, wheezing, other Cardiovascular: denies: chest pain, palpitations, orthopnea, paroxysmal noc. dyspnea, edema, light headedness, other - Medication Medications: Active Medications Generic Name Dose Route Start Last Admin Trade Name Freq PRN Reason Stop Dose Admin Acetaminophen 1,000 mg 04/13/19 23:59 04/14/19 13:14 Tylenol PO 1,000 mg Q6HR MATT Administration Alprazolam 0.25 mg 04/12/19 20:59 04/12/19 21:13 Xanax PO 0.25 mg BIDPRN PRN Administration Anxiety Promethazine HCl 25 mg/ Sodium 51 mls @ 102 mls/hr 04/12/19 11:51 04/12/19 15 :02 Chloride IVPB 51 mls Q6H PRN Administration Nausea Potassium Chloride/Sodium Chloride 1,000 ml in 1,000 mls @ 50 mls/hr 04/13/19 08:52 04/13/19 21:12 Ns 0.9% W/ 20 Meq Kcl IV 1,000 mls .Q20H MATT Administration Ibuprofen 400 mg 04/14/19 12:00 04/14/19 13:14 Motrin PO 400 mg Q6HR MATT Administration Ondansetron HCl 4 mg 04/11/19 17:21 04/12/19 21:13 Zofran IVP 4 mg Q6H PRN Administration Nausea/Vomiting Potassium Chloride 20 meq 04/12/19 15:00 04/14/19 08:57 Klor-Con PO 20 meq TID MATT Administration Sodium Chloride 10 ml 04/12/19 09:00 04/14/19 08:24 Flush - Normal Saline IVF Not Given Q12HR MATT Tramadol HCl 50 mg 04/13/19 18:57 04/14/19 08:57 Ultram PO 50 mg Q6H PRN Administration Moderate Pain (4-6) Tramadol HCl 100 mg 04/13/19 18:57 04/13/19 20:03 Ultram PO 100 mg Q6H PRN Administration Severe Pain (7-10) - Exam General Appearance: NAD Heart: RRR, no gallops Respiratory: no wheezes, no ronchi Gastrointestinal: non-distended, normal bowel sounds Extremities: no cyanosis Neurological: no new deficit Hosp A/P - Plan DVT proph w/SCDs Intractable N/V/Abd pain - suspected due to chronic cholecystitis s/p Lap nils 3/5 Abn LFTs Hypokalemia/Hyponatremia Dehydration PLAN: Cont IVF Change PPI to PO On Full liqd diet Cont other meds as above LFTs in AM
[2019-04-14] MEDS: NS 0.9% w/ 20 MEQ KCL 1,000 ML/1,000 ML BAG IV SCH (23:07)
--- NOTE | 2019-04-15 01:05 | PRG ---
DATE OF SERVICE: 04/14/2019 SUBJECTIVE: The patient is currently on the observation floor. He is postop day 1, status post laparoscopic cholecystectomy for chronic biliary dyskinesia and acalculous cholecystitis. He tolerated procedure well, though he did have some nausea and his repeat LFTs this morning were elevated. So, it was determined that we would keep him one more night to repeat his labs in the morning and if they remain elevated, we will have GI reassess him for possible ERCP. PHYSICAL EXAMINATION: VITAL SIGNS: Stable. The patient is afebrile. GENERAL: He just finished eating a regular diet. He is awake, conversant, appropriate. ABDOMEN: Soft without peritoneal signs. His postop sites are clean, dry, and intact. ASSESSMENT AND PLAN: 1. Postop day 1, status post laparoscopic cholecystectomy. 2. Elevated LFTs. Plan will be to make the patient n.p.o. after midnight. Should he need an ERCP tomorrow, we will repeat his LFTs. Encourage him to ambulate. If the patient's labs improve, he will likely be discharged tomorrow. Job ID: [id number]
[2019-04-15 05:59] LABS: ALT (SGPT) 151 U/L (8-55); AST (SGOT) 73 U/L (5-34); Albumin 3.7 g/dL (3.5-5.0); Alkaline Phosphatase 84 U/L (40-110); Anion Gap 7 mmol/L (10-20); BUN (Urea Nitrogen) 5 mg/dL (8.9-20.6); Bilirubin, Direct 0.4 mg/dL (0.1-0.3); Bilirubin, Total 0.6 mg/dL (0.2-1.2); Calc. Creatinine Clearance 113 mL/min (70-130); Calcium 8.4 mg/dL (7.8-10.44); Carbon Dioxide 29 mmol/L (22-29); Chloride 104 mmol/L (98-107); Estimated GFR-MDRD Greater than 90; Glucose 99 mg/dL (70-105); Potassium 3.6 mmol/L (3.5-5.1); Protein, Total 5.9 g/dL (6.0-8.3); Sodium 136 mmol/L (136-145)
[2019-04-15] MEDS: Acetaminophen 500 MG TAB PO SCH (06:09)
[2019-04-15] MEDS: Ibuprofen 200 MG TAB PO SCH (06:09)
[2019-04-15 08:28] VITALS: BP 116/68; TEMP 97.9
[2019-04-15] MEDS: NS 0.9% w/ 20 MEQ KCL 1,000 ML/1,000 ML BAG IV SCH (08:39)
--- NOTE | 2019-04-15 10:26 | PRG ---
DATE OF SERVICE: 04/15/2019 SUBJECTIVE: This is a 19-year-old Latin-[place] male, hospitalized with intractable nausea and vomiting with also some mild abdominal pain. He was found to have abnormal LFTs and also abdominal sonogram showed biliary sludge. He has also had a HIDA scan, which came back abnormal. He underwent lap cholecystectomy by Dr. Martinez two days ago. His liver function slightly going up yesterday. The plan was for possible ERCP today. However, surprisingly his liver function tests are coming down. The bilirubin is actually normalized today. Bilirubin now is 0.6 mg today, it was 2.7; and the AST is down to 73; ALT down to 151; alkaline phosphatase is normal. He is tolerating diet. His potassium level is back to normal. He offers no complaints. PHYSICAL EXAMINATION: GENERAL: Appears comfortable. He is thin built. VITAL SIGNS: Stable, afebrile. Pulse is 76, blood pressure 116/63. CARDIOVASCULAR AND LUNGS: Within normal limits. ABDOMEN: Soft. Mildly tender RECOMMENDATIONS: As the liver function tests are coming down, I believe he does not need any ERCP or any further workup. From GI standpoint, he can be discharged home tomorrow. Job ID: [id number]
--- NOTE | 2019-04-15 17:35 | PRG ---
DATE OF SERVICE: 04/15/2019 SUBJECTIVE: Mr. Doty is a 19-year-old, postop day #2, status post laparoscopic cholecystectomy. He is tolerating a general diet and having normal bowel and urinary function. The pain is adequately controlled on oral analgesics. OBJECTIVE: VITAL SIGNS: Stable with a blood pressure 116/68, pulse 76, respiratory rate 16, temperature 97.9 degrees Fahrenheit, and oxygen saturation 99% on room air. ABDOMEN: Soft. Incisions are intact, clean, and dry. He has no peritoneal signs on examination. LABORATORY STUDIES: Includes metabolic profile; sodium 136, potassium 3.6, chloride is 104, bicarb is 29, BUN 5, creatinine 0.72, glucose 99, total bilirubin is 0.6 down from 2.7 yesterday, AST and ALT normalizing at 73 and 151 respectively down from 290 and 246 yesterday. IMPRESSION: Postop day #2, status post laparoscopic cholecystectomy. PLAN: The patient maybe discharged home today at the discretion of the Primary Service. He needs to follow up with me in the Surgery Clinic in 2 weeks with a repeat LFTs. He may call with any questions or problems including intolerance to oral intake, fever in excess of 101 degrees Fahrenheit, or any exacerbation of abdominal pain. He is given a prescription for tramadol 50 mg to be taken 1 to 2 p.o. q.6 hours p.r.n. breakthrough pain. He may take Tylenol 1000 mg p.o. q.6 hours p.r.n. pain, alternating this with ibuprofen 600 mg p.o. q.8 hours p.r.n. pain. Above instructions given to the patient in the presence of his parents. He is to ambulate daily to avoid complications of venous thromboembolism. The patient has expressed gratitude for the care rendered to him during this hospitalization and surgery. Job ID: [id number]
--- NOTE | 2019-04-16 03:46 | DIS ---
DATE OF ADMISSION: 04/11/2019 DATE OF DISCHARGE: 04/15/2019 PRIMARY CARE PROVIDER: Dr. Dejan Garcia. DISCHARGE DIAGNOSES: 1. Chronic acalculous cholecystitis. 2. Abnormal liver function tests. 3. Hypokalemia. 4. Hyponatremia. 5. Dehydration. CONDITION OF PATIENT ON THE DAY OF DISCHARGE: Stable. I assessed Mr. Doty on the day of discharge. He denies any chest pain or shortness of breath. Vital signs are stable. S1 and S2 are heard, regular. Lungs are clear to auscultation bilaterally. CONSULTATIONS DURING THIS HOSPITALIZATION: Gastroenterology, Dr. Pizano and General Surgery, Dr. Gato Martinez. DISCHARGE MEDICATIONS: None. POST ACUTE CARE FOLLOWUP: With primary care provider in [address] Martinez on 04/27/2019, at 10:30 am, with LFTs. DIET: Regular. ACTIVITY: No restrictions. HOSPITAL COURSE: Mr. Doty is a pleasant 19-year-old gentleman who was admitted to [facility] on 04/11/2019, for nausea and vomiting. Please refer to Dr. Lehman's history and physical note dated 04/11/2019, for further details. Abdominal ultrasound on 04/11, showed gallbladder sludge. General Surgery and Gastroenterology Services were consulted. HIDA scan showed gallbladder dyskinesia/chronic acalculous cholecystitis. He underwent laparoscopic cholecystectomy on 04/13/2019. LFTs initially trended up following the surgery, but subsequently trended down. He is being discharged home in a stable condition. On the day of discharge, he has sodium 136, potassium 3.6, creatinine 0.72, total bilirubin 0.6, AST 73, and ALT 151. Many thanks for allowing me to participate in your patient's care. Please feel free to contact me with any questions or concerns. DISCHARGE DESTINATION: Home. TIME SPENT: Total amount of time spent coordinating this discharge: 19 minutes. Job ID: [id number]
[2019-04-17 18:13] LABS: H. pylori IgA ABS Less than 9.0 units (0.0-8.9); H. pylori IgG ABS 0.14 (0.00-0.79); H. pylori IgM ABS Less than 9.0 units (0.0-8.9)
== END 2019-04-15 09:57 | disposition home or self-care (01) | DRG 418 ==
LOC: ERS 13:20 → OBSVTOIN 17:09 → 2SW 17:09
PROVIDERS: ADMIT Emergency Medicine; ATTEND Internal Medicine
PROC: 0FT44ZZ Resection of Gallbladder, Percutaneous Endoscopic Approach (ICD-10-PCS; principal; 2019-04-13)
DX: K81.1 Chronic cholecystitis (principal); E87.1 Hypo-osmolality and hyponatremia; K82.8 Other specified diseases of gallbladder; E87.6 Hypokalemia; E86.0 Dehydration
CPT/HCPCS: 36415; 74022; 76705; 78227; 80048; 80053; 80074; 80076; 81003; 83690; 83735; 84100; 85025; 88304; 96361; 96374; A9537; C9113; J1885; J2001; J2250; J2405; J2543; J2550; J2704; J3010; J3480; J3490; S0020; S0028

== ENCOUNTER 2019-05-07 08:28 | Emergency (ER) | payer BC ==
[2019-05-07] MEDS ORDERED: Ondansetron PF 4 MG/2 ML Vial ONE (08:50)
[2019-05-07 08:59] LABS: #Basophils 0.1 thou/uL (0.0-0.2); #Lymphocytes 1.8 thou/uL (1.20-3.40); #Monocytes 1.6 thou/uL (0.11-0.59); #Neutrophils 13.3 thou/uL (1.40-6.50); %Basophils 0.4 % (0.0-1.0); %Eosinophils 0.2 % (0.0-10.0); %Lymphocytes 10.6 % (21.0-51.0); %Monocytes 9.5 % (0.0-10.0); %Neutrophils 79.3 % (42.0-75.0); Mean Corpuscular HGB CONC 34.9 g/dL (32.0-36.0); Mean Corpuscular Hemoglobin 30.5 pg (27.0-31.0); Mean Corpuscular Volume 87.3 fL (78.0-98.0); Mean Platelet Volume 7.4 fL (7.4-10.4); Platelet Count 426 thou/uL (130-400); RBC Distribution Width 12.3 % (11.5-14.5); Red Blood Cell (RBC) Count 5.25 mill/uL (4.70-6.10); White Blood Cell (WBC) Count 16.8 thou/uL (4.8-10.8)
[2019-05-07 09:16] LABS: ALT (SGPT) 30 U/L (8-55); AST (SGOT) 23 U/L (5-34); Albumin 5.3 g/dL (3.5-5.0); Alcohol Less than 10 mg/dL (Less than 10); Alkaline Phosphatase 83 U/L (40-110); Anion Gap 16 mmol/L (10-20); BUN (Urea Nitrogen) 14 mg/dL (8.9-20.6); Bilirubin, Total 0.9 mg/dL (0.2-1.2); Calc. Creatinine Clearance 0 mL/min (70-130); Calcium 10.1 mg/dL (7.8-10.44); Carbon Dioxide 28 mmol/L (22-29); Chloride 98 mmol/L (98-107); Estimated GFR-MDRD Greater than 90; Globulin 3.3 g/dL (2.4-3.5); Glucose 119 mg/dL (70-105); Lipase 21 U/L (8-78); Potassium 3.3 mmol/L (3.5-5.1); Protein, Total 8.6 g/dL (6.0-8.3); Sodium 139 mmol/L (136-145)
--- NOTE | 2019-05-07 09:58 | CT ---
CT ABDOMEN AND PELVIS WITH CONTRAST: INDICATIONS: Abdominal pain with vomiting. Post cholecystectomy approximately three weeks ago. FINDINGS: The lung bases are clear. The liver, spleen and pancreas appear unremarkable. Post cholecystectomy clips are seen in the gallbl adder fossa. There is no evidence of hematoma or abscess. The adrenal glands and kidneys are unremarkable. The stomach and duodenum are unremarkable. Small bowel loops appear normal. The appendix is unremarkable. There is density seen within the [place], which could represent contrast or calcification. No evidence of appendiceal inflammation. Images through the pelvis are unremarkable. The urinary bladder is mildly distended but unremarkable in appearance. The abdominal aorta is unremarkable. No adenopathy or mass lesion seen. IMPRESSION: No evidence of acute process. POS: [facility]
[2019-05-07] MEDS ORDERED: diphenhydrAMINE 50 MG/ML VIAL ONE (11:32)
[2019-05-07] MEDS ORDERED: Metoclopramide HCl 10 MG/2 ML VIAL ONE (11:32)
[2019-05-07] MEDS ORDERED: Iopamidol 370 76% 100 ML VIAL ONE (13:40)
== END 2019-05-07 12:23 | disposition home or self-care (01) ==
LOC: ERS 08:28
DX: E86.0 Dehydration (principal)
CPT/HCPCS: 74177; 80053; 80307; 83690; 85025; 96361; 96365; 96375; J1200; J2405; J2765; Q9967

== ENCOUNTER 2019-08-20 09:56 | Emergency (ER) | payer BC ==
[2019-08-20] MEDS ORDERED: Ondansetron PF 4 MG/2 ML Vial ONE ×2 (10:18→12:35)
[2019-08-20 10:42] LABS: Hemoglobin 17.2 g/dL (14.0-18.0); Mean Corpuscular HGB CONC 34.1 g/dL (32.0-36.0); Mean Corpuscular Hemoglobin 29.6 pg (27.0-31.0); Mean Corpuscular Volume 86.7 fL (78.0-98.0); Platelet Count 379 thou/uL (130-400); RBC Distribution Width 11.9 % (11.5-14.5); White Blood Cell (WBC) Count 19.8 thou/uL (4.8-10.8)
[2019-08-20 10:55] LABS: ALT (SGPT) 23 U/L (8-55); AST (SGOT) 25 U/L (5-34); Albumin 5.7 g/dL (3.5-5.0); Alkaline Phosphatase 76 U/L (40-110); Anion Gap 27 mmol/L (10-20); BUN (Urea Nitrogen) 27 mg/dL (8.9-20.6); CK (CPK) 185 U/L (30-200); Calc. Creatinine Clearance 0 mL/min (70-130); Calcium 10.5 mg/dL (7.8-10.44); Carbon Dioxide 22 mmol/L (22-29); Chloride 96 mmol/L (98-107); Estimated GFR-MDRD 55; Glucose 144 mg/dL (70-105); Potassium 3.7 mmol/L (3.5-5.1); Protein, Total 9.7 g/dL (6.0-8.3); Sodium 141 mmol/L (136-145)
[2019-08-20 11:18] LABS: Band 1 % (5-11); Hypersemented Neutrophil SLIGHT; Lymphocytes 11 % (21-51); MDiff Complete? YES; Monocytes 6 % (0-10); Neutrophil 82 % (42-75); Platelet Morphology Comment Appears Adequate
[2019-08-20 12:10] LABS: Bacteria/HPF None Seen HPF (None Seen); Bilirubin Negative (Negative); Blood, Urine Trace (Negative); Clarity Clear (Clear); Glucose, Urine (Dipstick) 70 mg/dL (Negative); Ketone, Urine Greater than 150 mg/dL (Negative); Leukocyte Negative Leu/uL (Negative); Mucous/LPF 2+ LPF (<2+); Nitrite Negative (Negative); Protein, Urine (Dipstick) 200 mg/dL (Neg-Trace); RBC/HPF 0-3 HPF (0-3); Specific Gravity, Urine 1.036 (1.002-1.036); Squamous Epithelial 0-3 HPF (0-3); Urobilinogen Normal mg/dL (Less than 2)
== END 2019-08-20 14:01 | disposition home or self-care (01) ==
LOC: ERS 09:56
DX: E86.0 Dehydration (principal); N17.9 Acute kidney failure, unspecified; R11.2 Nausea with vomiting, unspecified
CPT/HCPCS: 80053; 81003; 81015; 82550; 85025; 96361; 96374; 96376; J2405

== ENCOUNTER 2019-08-21 06:56 | Emergency (ER) | payer BC, OTHER ==
[2019-08-21] MEDS ORDERED: Pantoprazole 40 MG VIAL ONE (07:42)
[2019-08-21] MEDS ORDERED: Ondansetron PF 4 MG/2 ML Vial ONE (07:42)
[2019-08-21 07:49] LABS: #Basophils 0.1 thou/uL (0.0-0.2); #Lymphocytes 1.6 thou/uL (1.20-3.40); #Monocytes 1.2 thou/uL (0.11-0.59); #Neutrophils 11.9 thou/uL (1.40-6.50); %Basophils 0.5 % (0.0-1.0); %Eosinophils 0.2 % (0.0-10.0); %Lymphocytes 10.9 % (21.0-51.0); %Monocytes 8.2 % (0.0-10.0); %Neutrophils 80.4 % (42.0-75.0); Hemoglobin 15.7 g/dL (14.0-18.0); Mean Corpuscular HGB CONC 34.3 g/dL (32.0-36.0); Mean Corpuscular Hemoglobin 30.6 pg (27.0-31.0); Mean Corpuscular Volume 89.2 fL (78.0-98.0); Mean Platelet Volume 7.8 fL (7.4-10.4); Platelet Count 334 thou/uL (130-400); RBC Distribution Width 11.6 % (11.5-14.5); Red Blood Cell (RBC) Count 5.14 mill/uL (4.70-6.10); White Blood Cell (WBC) Count 14.8 thou/uL (4.8-10.8)
[2019-08-21 08:04] LABS: ALT (SGPT) 23 U/L (8-55); AST (SGOT) 28 U/L (5-34); Alkaline Phosphatase 63 U/L (40-110); Anion Gap 19 mmol/L (10-20); BUN (Urea Nitrogen) 16 mg/dL (8.9-20.6); Bilirubin, Total 1.4 mg/dL (0.2-1.2); Calc. Creatinine Clearance 0 mL/min (70-130); Calcium 9.6 mg/dL (7.8-10.44); Carbon Dioxide 23 mmol/L (22-29); Chloride 103 mmol/L (98-107); Estimated GFR-MDRD 85; Globulin 3.3 g/dL (2.4-3.5); Glucose 118 mg/dL (70-105); Lipase 20 U/L (8-78); Potassium 3.4 mmol/L (3.5-5.1); Protein, Total 8.3 g/dL (6.0-8.3); Sodium 142 mmol/L (136-145)
--- NOTE | 2019-08-21 09:31 | CT ---
CT ABDOMEN AND PELVIS WITH IV CONTRAST: Date: 08/21/2019 HISTORY: Upper abdominal pain and vomiting. COMPARISON: 05/07/2019. FINDINGS: The lung bases are clear. The patient is post cholecystectomy. Changes of fatty infiltration of the l iver are present. The spleen, pancreas, adrenal glands, and kidneys are normal. No free air, free flu id, or lymphadenopathy seen in the abdomen or pelvis. The small bowel loops are not abnormally dilate d. Appendicoliths are again seen with air in the appendix and no abnormal fluid-filled appendiceal di latation or periappendiceal/pericecal inflammatory changes. No acute osseous abnormalities are seen. IMPRESSION: No evidence of acute process. POS: [facility]
[2019-08-21] MEDS ORDERED: Iopamidol-370 76% 500 ML 1 ML ONE (09:48)
[2019-08-22 15:25] LABS: SARS-CoV-2 MS2 Positive; SARS-CoV-2 N Gene Negative; SARS-CoV-2 S Gene Negative; SARS-CoV-2 orf1ab Negative
== END 2019-08-21 10:10 | disposition home or self-care (01) ==
LOC: ERS 06:56
DX: E86.0 Dehydration (principal); R11.2 Nausea with vomiting, unspecified
CPT/HCPCS: 36415; 74177; 80053; 83690; 85025; 87635; 96361; 96374; 96375; C9113; J2405; Q9967; U0003

== ENCOUNTER 2020-04-21 09:52 | Emergency (ER) | payer BC ==
[2020-04-21] MEDS ORDERED: Haloperidol Lactate 5 MG/ML VIAL ONE (10:27)
[2020-04-21] MEDS ORDERED: Pantoprazole 40 MG VIAL ONE (10:28)
[2020-04-21 10:29] LABS: #Lymphocytes 1.2 thou/uL (1.20-3.40); #Monocytes 1.5 thou/uL (0.11-0.59); #Neutrophils 11.2 thou/uL (1.40-6.50); %Basophils 0.1 % (0.0-1.0); %Eosinophils 0.1 % (0.0-10.0); %Lymphocytes 8.7 % (21.0-51.0); %Monocytes 10.9 % (0.0-10.0); %Neutrophils 80.1 % (42.0-75.0); Hemoglobin 16.6 g/dL (14.0-18.0); Mean Corpuscular HGB CONC 33.4 g/dL (32.0-36.0); Mean Corpuscular Hemoglobin 29.4 pg (27.0-31.0); Mean Platelet Volume 7.7 fL (7.4-10.4); Platelet Count 411 thou/uL (130-400); RBC Distribution Width 12.5 % (11.5-14.5); Red Blood Cell (RBC) Count 5.65 mill/uL (4.70-6.10)
[2020-04-21 10:51] LABS: ALT (SGPT) 28 U/L (8-55); AST (SGOT) 21 U/L (5-34); Albumin 5.2 g/dL (3.5-5.0); Alkaline Phosphatase 75 U/L (40-110); Anion Gap 19 mmol/L (10-20); BUN (Urea Nitrogen) 27 mg/dL (8.9-20.6); Bilirubin, Total 1.1 mg/dL (0.2-1.2); Calc. Creatinine Clearance 0 mL/min (70-130); Calcium 9.7 mg/dL (7.8-10.44); Carbon Dioxide 27 mmol/L (22-29); Chloride 99 mmol/L (98-107); Globulin 3.4 g/dL (2.4-3.5); Glucose 119 mg/dL (70-105); Lipase 17 U/L (8-78); Potassium 3.1 mmol/L (3.5-5.1); Protein, Total 8.6 g/dL (6.0-8.3); Sodium 142 mmol/L (136-145)
[2020-04-21] MEDS ORDERED: Mag-Al 1200 mg/1200 mg/30 ML UDCUP ONE (11:19)
[2020-04-21] MEDS ORDERED: Lidocaine Viscous Sol 2% 15 ml UD Cup ONE (11:19)
[2020-04-21] MEDS ORDERED: Promethazine HCl 25 MG/ML VIAL ONE (11:52)
[2020-04-21 14:19] LABS: Bacteria/HPF 1+ HPF (None Seen); Bilirubin Negative (Negative); Blood, Urine Negative (Negative); Clarity Clear (Clear); Glucose, Urine (Dipstick) 30 mg/dL (Negative); Ketone, Urine 10 mg/dL (Negative); Leukocyte Negative Leu/uL (Negative); Nitrite Negative (Negative); Protein, Urine (Dipstick) 100 mg/dL (Neg-Trace); RBC/HPF 0-3 HPF (0-3); Specific Gravity, Urine 1.035 (1.002-1.036); Squamous Epithelial 0-3 HPF (0-3); Urobilinogen Normal mg/dL (Less than 2); pH, Urine 6.5 (5.0-9.0)
== END 2020-04-21 14:45 | disposition home or self-care (01) ==
LOC: ERS 09:52
DX: R11.2 Nausea with vomiting, unspecified (principal); R10.13 Epigastric pain
CPT/HCPCS: 36415; 74022; 80053; 81003; 81015; 83690; 85025; 87086; 96372; 96374; 96376; C9113; J0500; J1630; J2550

== ENCOUNTER 2022-11-12 20:26 | Emergency (ER) | payer BC ==
[~2022-11-12 20:26] MED LIST: Iopamidol-370 76% 500 ML MDV (1 ML CHARGE) ONE
[2022-11-12] MEDS ORDERED: Ondansetron PF 4 MG/2 ML Vial ONE ×2 (21:17→22:49)
[2022-11-12 21:55] LABS: #Monocytes 0.8 thou/uL (0.11-0.59); #Neutrophils 18.8 thou/uL (1.40-6.50); %Basophils 0.2 % (0.0-1.0); %Lymphocytes 3.6 % (21.0-51.0); %Neutrophils 91.6 % (42.0-75.0); Hemoglobin 17.1 g/dL (14.0-18.0); Mean Corpuscular HGB CONC 34.2 g/dL (32.0-36.0); Mean Corpuscular Hemoglobin 29.4 pg (27.0-31.0); Mean Corpuscular Volume 86.1 fl (78.0-98.0); Mean Platelet Volume 9.7 fL (7.4-10.4); Platelet Count 387 10x3/uL (130-400); RBC Distribution Width 13.3 % (11.5-14.5); Red Blood Cell (RBC) Count 5.81 mill/uL (4.70-6.10); White Blood Cell (WBC) Count 20.6 10x3/uL (4.8-10.8)
[2022-11-12 22:23] LABS: ALT (SGPT) 23 U/L (8-55); AST (SGOT) 31 U/L (5-34); Albumin 5.3 g/dL (3.5-5.0); Alkaline Phosphatase 67 U/L (40-110); Anion Gap 23 mmol/L (10-20); BUN (Urea Nitrogen) 13 mg/dL (8.9-20.6); Bilirubin, Total 0.7 mg/dL (0.2-1.2); Calc. Creatinine Clearance 0 mL/min (70-130); Calcium 9.9 mg/dL (7.8-10.44); Carbon Dioxide 15 mmol/L (22-29); Chloride 106 mmol/L (98-107); Estimated GFR 107; Globulin 3.5 g/dL (2.4-3.5); Glucose 104 mg/dL (70-105); Lipase 11 U/L (8-78); Potassium 3.7 mmol/L (3.5-5.1); Protein, Total 8.8 g/dL (6.0-8.3); Sodium 140 mmol/L (136-145)
[2022-11-12] MEDS ORDERED: Promethazine HCl 25 MG/ML VIAL ONE (22:49)
[2022-11-12] MEDS ORDERED: Ciprofloxacin 500 MG TAB ONE (22:49)
[2022-11-12 22:54] LABS: Bacteria/HPF None Seen HPF (None Seen); Bilirubin Negative (Negative); Blood, Urine 1+ (Negative); CAUTI Indications for Culture Dysuria,urgency,freq; Clarity Clear (Clear); Glucose, Urine (Dipstick) Normal (Negative); Ketone, Urine 100 mg/dL (Negative); Leukocyte Negative Leu/uL (Negative); Nitrite Negative (Negative); Protein, Urine (Dipstick) Negative (Neg-Trace); RBC/HPF 0-3 HPF (0-3); Specific Gravity, Urine 1.021 (1.002-1.036); Squamous Epithelial 0-3 HPF (0-3); Urobilinogen Normal mg/dL (Less than 2); WBC/HPF 0-3 HPF (0-3); pH, Urine 5.5 (5.0-9.0)
[2022-11-12 22:55] LABS: Urine Culture Reflex No No
== END 2022-11-12 23:46 | disposition home or self-care (01) ==
LOC: ERS 20:26
DX: K52.9 Noninfective gastroenteritis and colitis, unspecified (principal)
CPT/HCPCS: 74177; 80053; 81001; 82010; 83605; 83690; 85025; 96361; 96365; 96375; 96376; J2405; J2550; Q9967

== ENCOUNTER 2023-03-04 11:07 | Inpatient (IN) | payer BC ==
[2023-03-04] MEDS ORDERED: Iopamidol-370 76% 500 ML MDV (1 ML CHARGE) ONE (11:24)
[2023-03-04] MEDS ORDERED: Haloperidol Lactate 5 MG/ML VIAL ONE (11:31)
[2023-03-04 11:42] LABS: #Basophils 0.1 thou/uL (0.0-0.2); #Eosinphils 0.1 thou/uL (0.0-0.7); #Monocytes 0.9 thou/uL (0.11-0.59); #Neutrophils 21.3 thou/uL (1.40-6.50); %Basophils 0.3 % (0.0-1.0); %Eosinophils 0.3 % (0.0-10.0); %Lymphocytes 5.3 % (21.0-51.0); %Monocytes 3.4 % (0.0-10.0); %Neutrophils 86.2 % (42.0-75.0); Hematocrit 47.1 % (42.0-52.0); Hemoglobin 15.7 g/dL (14.0-18.0); Mean Corpuscular HGB CONC 33.3 g/dL (32.0-36.0); Mean Corpuscular Hemoglobin 30.1 pg (27.0-31.0); Mean Corpuscular Volume 90.2 fl (78.0-98.0); Mean Platelet Volume 9.3 fL (7.4-10.4); Platelet Count 426 10x3/uL (130-400); RBC Distribution Width 13.5 % (11.5-14.5); Red Blood Cell (RBC) Count 5.22 mill/uL (4.70-6.10); White Blood Cell (WBC) Count 24.8 10x3/uL (4.8-10.8)
[2023-03-04 11:58] LABS: ALT (SGPT) 24 U/L (8-55); AST (SGOT) 22 U/L (5-34); Albumin 4.6 g/dL (3.5-5.0); Alkaline Phosphatase 83 U/L (40-110); Anion Gap 18 mmol/L (10-20); BUN (Urea Nitrogen) 13 mg/dL (8.9-20.6); Bilirubin, Total 0.2 mg/dL (0.2-1.2); Calc. Creatinine Clearance 0 mL/min (70-130); Calcium 8.5 mg/dL (7.8-10.44); Carbon Dioxide 13 mmol/L (22-29); Chloride 107 mmol/L (98-107); Estimated GFR 94; Glucose 237 mg/dL (70-105); Lipase 45 U/L (8-78); Protein, Total 7.6 g/dL (6.0-8.3); Sodium 134 mmol/L (136-145)
[2023-03-04 12:23] LABS: Acetaminophen Less than 10 mcg/mL (10.0-30.0); Alcohol Less than 10.0 mg/dL (Less than 10); Salicylate Less than 8.0 mg/dL (15.0-30.0)
[2023-03-04 12:42] LABS: Amphetamine Not Detected (NotDetected); Barbiturates Screen Not Detected (NotDetected); Benzodiazepine Screen Not Detected (NotDetected); Cocaine Metabolite Screen Detected (NotDetected); Methadone Not Detected (NotDetected); Methamphetamine Not Detected (NotDetected); Opiate Screen Not Detected (NotDetected); Oxycodone Screen Not Detected (NotDetected); Phencyclidine (PCP) Not Detected (NotDetected); THC/Cannabinoid Screen Detected (NotDetected); Tricyclic Screen Not Detected (NotDetected)
[2023-03-04 12:43] LABS: Bacteria/HPF 1+ HPF (None Seen); Bilirubin Negative (Negative); Blood, Urine 2+ (Negative); CAUTI Indications for Culture Alt mental st,lethar; Clarity Clear (Clear); Glucose, Urine (Dipstick) Greater than 1000 mg/dL (Negative); Ketone, Urine Trace mg/dL (Negative); Leukocyte Negative Leu/uL (Negative); Nitrite Negative (Negative); Protein, Urine (Dipstick) 50 mg/dL (Neg-Trace); RBC/HPF 0-3 HPF (0-3); Specific Gravity, Urine 1.014 (1.002-1.036); Squamous Epithelial None Seen HPF (0-3); Urobilinogen Normal mg/dL (Less than 2); WBC/HPF None Seen HPF (0-3); pH, Urine 5.5 (5.0-9.0)
[2023-03-04 12:45] LABS: Urine Culture Reflex No No
[2023-03-04 13:29] LABS: SARS-CoV-2 NAA Rapid Test Not Detected (NotDetected)
[2023-03-04] MEDS ORDERED: Sodium Chloride 0.9% 100 ML ONE (14:12)
[2023-03-04] MEDS ORDERED: cefTRIAXone (ROCEPHIN) 1 GM VIAL ONE (14:12)
[2023-03-04 14:29] LABS: Actual Bicarbonate (HCO3v) 19.3 mEq/L (22-28); Analyzer IN Cardio ER; Calcium, Ionized (venous) 1.03 mmol/L (1.16-1.32); Chloride (VBG) 103 mmol/L (98-106); Hematocrit-VBG 48 % (42.0-52.0); Hemoglobin (Hb) 16.4 g/dL (13.2-17.3); Potassium (VBG) 3.14 mmol/L (3.70-5.30); Sodium 136 mmol/L (133-146); pH (venous) 7.329 (7.32-7.43)
[2023-03-04] MEDS ORDERED: LORazepam 2 MG/ML SYR.(CARPUJECT) ONE (15:55)
[2023-03-04] MEDS ORDERED: Dextrose 5% in Water 1,000 ML IV PRN (16:29)
[2023-03-04] MEDS ORDERED: HYDROcodone/Acetaminophen 5/325 mg Tablet PO PRN (16:29)
[2023-03-04] MEDS ORDERED: Calcium Carbonate 500 MG ChewTAB PO PRN (16:29)
[2023-03-04] MEDS ORDERED: HumaLOG 300 UNITS/3 ML VIAL SC PRN (16:29)
[2023-03-04] MEDS ORDERED: Dextrose 50% Abboject 50 ML SYRINGE SLOW IVP PRN (16:29)
[2023-03-04] MEDS ORDERED: Acetaminophen 325 MG TAB PO PRN (16:29)
[2023-03-04] MEDS ORDERED: Glucagon 1 MG/ML KIT IM PRN (16:29)
[2023-03-04] MEDS ORDERED: Ondansetron PF 4 MG/2 ML Vial IVP PRN (16:36)
[2023-03-04] MEDS ORDERED: Lactated Ringer's 1,000 ML IV SCH (16:45)
[2023-03-04] MEDS ORDERED: Metoclopramide HCl 10 MG (2 mL) VIAL IVP PRN (16:52)
[2023-03-04] MEDS ORDERED: Sodium Chloride 0.9% 1,000 ML IV SCH (17:00)
[2023-03-04 18:04] VITALS: BMI 27.4
[2023-03-04] MEDS: Sodium Chloride 0.9% 1,000 ML IV SCH (18:13)
[2023-03-04] MEDS ORDERED: Lorazepam 2 MG/ML VIAL SLOW IVP PRN (18:38)
[2023-03-04] MEDS ORDERED: Famotidine 20 MG TAB PO SCH (21:00)
[2023-03-04] MEDS ORDERED: Pantoprazole 40 MG VIAL ONE (21:49)
[2023-03-04] MEDS ORDERED: Heparin 5,000 UNITS/ML VIAL ONE (21:49)
[2023-03-04] MEDS: Pantoprazole 40 MG VIAL IVP SCH (22:11)
[2023-03-04] MEDS: Heparin 5,000 UNITS/ML VIAL SC SCH (22:11)
[2023-03-04] MEDS ORDERED: Ondansetron PF 4 MG/2 ML Vial ONE (22:15)
[2023-03-04] MEDS: Lidocaine 2% Viscous Solution 20 ML, Aluminum & Magnesium Hydroxide 30 ML, Donnatal Eli... SSW SCH (22:20)
[2023-03-05 05:15] LABS: #Monocytes 1.7 thou/uL (0.11-0.59); #Neutrophils 14.5 thou/uL (1.40-6.50); %Basophils 0.2 % (0.0-1.0); %Eosinophils 0.1 % (0.0-10.0); %Lymphocytes 12.2 % (21.0-51.0); %Monocytes 8.9 % (0.0-10.0); %Neutrophils 77.7 % (42.0-75.0); Hematocrit 41.8 % (42.0-52.0); Hemoglobin 14.4 g/dL (14.0-18.0); Mean Corpuscular HGB CONC 34.4 g/dL (32.0-36.0); Mean Corpuscular Hemoglobin 30.4 pg (27.0-31.0); Mean Corpuscular Volume 88.2 fl (78.0-98.0); Mean Platelet Volume 9.1 fL (7.4-10.4); Platelet Count 366 10x3/uL (130-400); RBC Distribution Width 13.9 % (11.5-14.5); Red Blood Cell (RBC) Count 4.74 mill/uL (4.70-6.10); White Blood Cell (WBC) Count 18.6 10x3/uL (4.8-10.8)
[2023-03-05 05:26] LABS: Hemoglobin A1c 5.2 % (4.0-6.0)
[2023-03-05 05:56] LABS: Anion Gap 12 mmol/L (10-20); BUN (Urea Nitrogen) 8 mg/dL (8.9-20.6); Calc. Creatinine Clearance 150 mL/min (70-130); Calcium 8.5 mg/dL (7.8-10.44); Carbon Dioxide 20 mmol/L (22-29); Cardiac Risk 2.3 (Less than 4.5); Chloride 110 mmol/L (98-107); Cholesterol 152 mg/dl (< 200 Desired); Estimated GFR 128; Glucose 88 mg/dL (70-105); HDL Cholesterol 65 mg/dL (>60 Neg Risk); LDL Cholesterol, Calculated 71 mg/dL; Magnesium 2.5 mg/dL (1.6-2.6); Potassium 3.4 mmol/L (3.5-5.1); Sodium 139 mmol/L (136-145); Triglycerides 79 mg/dL (Less than 150)
[2023-03-05] MEDS: Lidocaine 2% Viscous Solution 20 ML, Aluminum & Magnesium Hydroxide 30 ML, Donnatal Eli... SSW SCH ×3 (09:13→21:27)
[2023-03-05] MEDS: Sodium Chloride 0.9% 1,000 ML IV SCH ×3 (09:14→21:26)
[2023-03-05] MEDS ORDERED: Pantoprazole 40 MG VIAL ONE (09:15)
[2023-03-05] MEDS ORDERED: Heparin 5,000 UNITS/ML VIAL ONE (09:15)
[2023-03-05] MEDS: Heparin 5,000 UNITS/ML VIAL SC SCH ×2 (09:19→21:28)
[2023-03-05] MEDS: Pantoprazole 40 MG VIAL IVP SCH (09:19)
[2023-03-05] MEDS ORDERED: FLUoxetine HCl 10 MG CAP PO SCH (15:00)
[2023-03-05] MEDS ORDERED: FLU VACC QS2023-24(6MOS UP)/PF 60 MCG/0.5 ML SYRINGE IM ONE (16:15)
[2023-03-06] MEDS: Sodium Chloride 0.9% 1,000 ML IV SCH ×3 (02:26→19:33)
[2023-03-06 05:26] LABS: #Basophils 0.1 thou/uL (0.0-0.2); #Eosinphils 0.1 thou/uL (0.0-0.7); #Monocytes 1.1 thou/uL (0.11-0.59); #Neutrophils 6.1 thou/uL (1.40-6.50); %Basophils 0.5 % (0.0-1.0); %Eosinophils 0.9 % (0.0-10.0); %Lymphocytes 28.2 % (21.0-51.0); %Monocytes 10.5 % (0.0-10.0); %Neutrophils 59.3 % (42.0-75.0); Hematocrit 39.8 % (42.0-52.0); Hemoglobin 13.4 g/dL (14.0-18.0); Mean Corpuscular HGB CONC 33.7 g/dL (32.0-36.0); Mean Corpuscular Hemoglobin 29.8 pg (27.0-31.0); Mean Corpuscular Volume 88.4 fl (78.0-98.0); Mean Platelet Volume 9.5 fL (7.4-10.4); Platelet Count 325 10x3/uL (130-400); RBC Distribution Width 14.1 % (11.5-14.5); White Blood Cell (WBC) Count 10.3 10x3/uL (4.8-10.8)
[2023-03-06 05:49] LABS: Anion Gap 12 mmol/L (10-20); BUN (Urea Nitrogen) 14 mg/dL (8.9-20.6); Calc. Creatinine Clearance 146 mL/min (70-130); Calcium 8.4 mg/dL (7.8-10.44); Carbon Dioxide 23 mmol/L (22-29); Chloride 108 mmol/L (98-107); Estimated GFR 127; Glucose 96 mg/dL (70-105); Potassium 3.5 mmol/L (3.5-5.1); Sodium 139 mmol/L (136-145)
[2023-03-06] MEDS: Heparin 5,000 UNITS/ML VIAL SC SCH ×2 (09:32→23:35)
[2023-03-06] MEDS: FLUoxetine HCl 10 MG CAP PO SCH (09:32)
[2023-03-06] MEDS ORDERED: FLU VACC QS2023-24(6MOS UP)/PF 60 MCG/0.5 ML SYRINGE IM ONE ×2 (09:38→11:01)
[2023-03-06] MEDS ORDERED: Magnevist 469MG/ML 20 ML VIAL ONE (12:06)
[2023-03-07] MEDS: Sodium Chloride 0.9% 1,000 ML IV SCH (03:39)
[2023-03-07 07:25] VITALS: BP 138/73; TEMP 98.1
[2023-03-07] MEDS: FLUoxetine HCl 10 MG CAP PO SCH (08:16)
[2023-03-07] MEDS: Heparin 5,000 UNITS/ML VIAL SC SCH (08:16)
== END 2023-03-07 10:28 | disposition home or self-care (01) | DRG 918 ==
LOC: ERS 11:07 → ERHOLD 16:42 → 2SE 03-05 15:11
PROVIDERS: ADMIT Hospitalist; ATTEND Hospitalist
PROC: 4A043R1 Measurement of Venous Saturation, Peripheral, Percutaneous Approach (ICD-10-PCS; 2023-03-04)
PROC: 4A00X4Z Measurement of Central Nervous Electrical Activity, External Approach (ICD-10-PCS; principal; 2023-03-06)
DX: T40.711A Poisoning by cannabis, accidental (unintentional), initial encounter (principal); T40.5X1A Poisoning by cocaine, accidental (unintentional), initial encounter; R56.9 Unspecified convulsions; R45.851 Suicidal ideations; R11.15 Cyclical vomiting syndrome unrelated to migraine; T40.715A Adverse effect of cannabis, initial encounter; R11.2 Nausea with vomiting, unspecified; D72.829 Elevated white blood cell count, unspecified; F14.10 Cocaine abuse, uncomplicated; F12.10 Cannabis abuse, uncomplicated; F19.10 Other psychoactive substance abuse, uncomplicated; F32.A Depression, unspecified; Z88.5 Allergy status to narcotic agent; Z90.49 Acquired absence of other specified parts of digestive tract; Z11.52 Encounter for screening for COVID-19; Z71.51 Drug abuse counseling and surveillance of drug abuser
CPT/HCPCS: 36415; 36416; 70450; 70553; 74177; 80048; 80053; 80061; 80306; 80307; 81001; 82010; 82805; 83036; 83605; 83690; 83735; 84443; 85025; 87040; 90471; 90686; 93005; 95816; 95819; A9579; C9113; G0008; J0696; J1630; J1644; J2060; J2405; J3490; J7050; Q9967

== ENCOUNTER 2023-10-25 20:46 | Emergency (ER) | payer BC ==
[2023-10-25] MEDS ORDERED: Ketorolac Tromethamine 30 MG (1 mL) VIAL ONE (21:08)
[2023-10-25] MEDS ORDERED: Ondansetron PF 4 MG/2 ML Vial ONE (21:08)
[2023-10-25] MEDS ORDERED: levETIRAcetam 500 MG (5 mL) VIAL ONE (21:08)
[2023-10-25 21:14] LABS: #Basophils 0.09 10x3/uL (0.0-0.2); %Basophils 0.4 % (0.0-1.0); %Eosinophils 1.1 % (0.0-10.0); %Lymphocytes 9.2 % (21.0-51.0); Hematocrit 49.7 % (42.0-52.0); Hemoglobin 16.4 g/dL (14.0-18.0); Mean Corpuscular Hemoglobin 29.7 pg (27.0-31.0); Mean Platelet Volume 9.2 fL (7.4-10.4); Platelet Count 409 10x3/uL (130-400); RBC Distribution Width 12.9 % (11.5-14.5); Red Blood Cell (RBC) Count 5.52 mill/uL (4.70-6.10)
[2023-10-25 21:35] LABS: ALT (SGPT) 35 U/L (8-55); AST (SGOT) 55 U/L (5-34); Albumin 4.9 g/dL (3.5-5.0); Alkaline Phosphatase 85 U/L (40-110); Anion Gap 27 mmol/L (10-20); BUN (Urea Nitrogen) 17 mg/dL (8.9-20.6); Bilirubin, Total 0.6 mg/dL (0.2-1.2); Calc. Creatinine Clearance 0 mL/min (70-130); Calcium 9.8 mg/dL (7.8-10.44); Carbon Dioxide 11 mmol/L (22-29); Chloride 106 mmol/L (98-107); Estimated GFR 80; Globulin 3.9 g/dL (2.4-3.5); Glucose 171 mg/dL (70-105); Potassium 2.9 mmol/L (3.5-5.1); Protein, Total 8.8 g/dL (6.0-8.3); Sodium 141 mmol/L (136-145)
== END 2023-10-25 22:54 | disposition home or self-care (01) ==
LOC: ERS 20:46
DX: R56.9 Unspecified convulsions (principal); E87.6 Hypokalemia
CPT/HCPCS: 36416; 80053; 85025; 93005; 96374; 96375; J1885; J1953; J2405

== ENCOUNTER 2023-11-03 08:51 | Inpatient (IN) | payer BC ==
[2023-11-03 10:01] LABS: #Basophils 0.04 10x3/uL (0.0-0.2); #Eosinphils Less than 0.03 10x3/uL (0.0-0.7); %Basophils 0.2 % (0.0-1.0); %Lymphocytes 3.8 % (21.0-51.0); %Monocytes 4.4 % (0.0-10.0); %Neutrophils 90.5 % (42.0-75.0); Hematocrit 49.2 % (42.0-52.0); Hemoglobin 17.3 g/dL (14.0-18.0); Mean Corpuscular HGB CONC 35.2 g/dL (32.0-36.0); Mean Corpuscular Volume 85.3 fL (78.0-98.0); Mean Platelet Volume 9.9 fL (7.4-10.4); Platelet Count 536 10x3/uL (130-400); RBC Distribution Width 12.4 % (11.5-14.5); Red Blood Cell (RBC) Count 5.77 mill/uL (4.70-6.10)
[2023-11-03 10:14] LABS: ALT (SGPT) 31 U/L (8-55); AST (SGOT) 32 U/L (5-34); Albumin 5.2 g/dL (3.5-5.0); Alkaline Phosphatase 88 U/L (40-110); Anion Gap 28 mmol/L (10-20); BUN (Urea Nitrogen) 30 mg/dL (8.9-20.6); Bilirubin, Total 0.8 mg/dL (0.2-1.2); Calc. Creatinine Clearance 0 mL/min (70-130); Calcium 10.8 mg/dL (7.8-10.44); Carbon Dioxide 16 mmol/L (22-29); Chloride 98 mmol/L (98-107); Estimated GFR 54; Globulin 4.6 g/dL (2.4-3.5); Glucose 152 mg/dL (70-105); Lipase 10 U/L (8-78); Potassium 4.1 mmol/L (3.5-5.1); Protein, Total 9.8 g/dL (6.0-8.3); Sodium 138 mmol/L (136-145)
[2023-11-03] MEDS ORDERED: Sodium Chloride 0.9% 100 ML ONE (10:30)
[2023-11-03] MEDS ORDERED: Piperacillin/Tazobactam 4.5 GM VIAL ONE (10:30)
[2023-11-03] MEDS ORDERED: Pantoprazole 40 MG VIAL ONE (10:30)
[2023-11-03] MEDS ORDERED: levETIRAcetam 500 MG (5 mL) VIAL ONE (10:30)
[2023-11-03] MEDS ORDERED: Droperidol 5 MG/2 ML VIAL ONE (10:34)
[2023-11-03] MEDS ORDERED: Ondansetron PF 4 MG/2 ML Vial IVP PRN (12:41)
[2023-11-03] MEDS ORDERED: Lorazepam 2 MG/ML VIAL SLOW IVP PRN (12:41)
[2023-11-03] MEDS ORDERED: Senokot S 8.6-50 MG TAB PO PRN (12:41)
[2023-11-03] MEDS ORDERED: Guaifenesin DM 100-10/5 ML UDCUP PO PRN (12:41)
[2023-11-03] MEDS ORDERED: Acetaminophen 325 MG TAB PO PRN (12:41)
[2023-11-03] MEDS: Lidocaine 2% Viscous 10 mL, Alum & Magn 30 mL SSW SCH (14:13)
[2023-11-03] MEDS: Sodium Chloride 0.9% 1,000 ML IV SCH (14:15)
[2023-11-03] MEDS: Valproate Sodium 500 MG in Sodium Chloride 0.9% 100 ML IVPB SCH (14:16)
[2023-11-03] MEDS ORDERED: Sodium Bicarbonate Tab 325 MG TAB ONE (15:00)
[2023-11-03] MEDS: Sodium Bicarbonate Tab 325 MG TAB PO SCH (15:05)
[2023-11-03 16:34] LABS: Lactic Acid 1.36 mmol/L (0.5-2.2)
[2023-11-03] MEDS: Valproic Acid 250 MG CAP PO SCH (22:12)
[2023-11-03] MEDS: busPIRone HCl 10 MG TAB PO SCH (22:13)
[2023-11-04 01:24] LABS: Amphetamine Not Detected (NotDetected); Barbiturates Screen Not Detected (NotDetected); Benzodiazepine Screen Not Detected (NotDetected); Cocaine Metabolite Screen Detected (NotDetected); Methadone Not Detected (NotDetected); Methamphetamine Not Detected (NotDetected); Opiate Screen Not Detected (NotDetected); Oxycodone Screen Not Detected (NotDetected); Phencyclidine (PCP) Not Detected (NotDetected); THC/Cannabinoid Screen Detected (NotDetected); Tricyclic Screen Not Detected (NotDetected)
[2023-11-04 05:19] LABS: Albumin 3.6 g/dL (3.5-5.0); Anion Gap 10 mmol/L (10-20); BUN (Urea Nitrogen) 15 mg/dL (8.9-20.6); BUN/Creatinine Ratio 13.16; Calc. Creatinine Clearance 81 mL/min (70-130); Calcium 8.3 mg/dL (7.8-10.44); Carbon Dioxide 28 mmol/L (22-29); Chloride 108 mmol/L (98-107); Estimated GFR 92; Glucose 95 mg/dL (70-105); Phosphorus 2.2 mg/dL (2.3-4.7); Potassium 3.6 mmol/L (3.5-5.1); Sodium 142 mmol/L (136-145)
[2023-11-04 06:14] LABS: #Basophils 0.03 10x3/uL (0.0-0.2); %Basophils 0.2 % (0.0-1.0); %Eosinophils 0.4 % (0.0-10.0); %Monocytes 10.3 % (0.0-10.0); %Neutrophils 71.5 % (42.0-75.0); Hematocrit 36.3 % (42.0-52.0); Hemoglobin 12.4 g/dL (14.0-18.0); Mean Corpuscular HGB CONC 34.2 g/dL (32.0-36.0); Mean Corpuscular Hemoglobin 29.5 pg (27.0-31.0); Mean Corpuscular Volume 86.2 fL (78.0-98.0); Mean Platelet Volume 9.3 fL (7.4-10.4); Platelet Count 303 10x3/uL (130-400); RBC Distribution Width 12.8 % (11.5-14.5); Red Blood Cell (RBC) Count 4.21 mill/uL (4.70-6.10)
[2023-11-04] MEDS: Enoxaparin 30 MG (0.3 mL) SYRINGE SC SCH (08:34)
[2023-11-04] MEDS: DULoxetine 30 MG CAP PO SCH (08:34)
[2023-11-04] MEDS: PHOS-NAK 1 PKT PACK PO SCH (11:46)
[2023-11-05 12:37] VITALS: BP 126/78; TEMP 97.8
[2023-11-06] MEDS ORDERED: Enoxaparin 40 MG (0.4 mL) SYRINGE SC SCH (09:00)
== END 2023-11-05 16:04 | disposition home or self-care (01) | DRG 101 ==
LOC: ERS 08:51 → ERHOLD 12:34 → 2SE 17:19
PROVIDERS: ADMIT Internal Medicine; ATTEND Internal Medicine
PROC: 4A00X4Z Measurement of Central Nervous Electrical Activity, External Approach (ICD-10-PCS; principal; 2023-11-03)
DX: R56.9 Unspecified convulsions (principal); N17.9 Acute kidney failure, unspecified; E87.20 Acidosis, unspecified; R11.15 Cyclical vomiting syndrome unrelated to migraine; Z90.49 Acquired absence of other specified parts of digestive tract; F19.10 Other psychoactive substance abuse, uncomplicated; F41.9 Anxiety disorder, unspecified; Z79.899 Other long term (current) drug therapy; Z91.148 Patient's other noncompliance with medication regimen for other reason; F32.9 Major depressive disorder, single episode, unspecified
CPT/HCPCS: 36415; 70450; 74177; 80053; 80069; 80164; 80177; 80306; 83605; 83690; 84146; 84439; 84443; 85025; 87040; 95813; 96374; 96375; J1650; J1790; J1953; J2470; J2543; J7030